=== PATIENT | male | born 1970 | race Two or more races ===

== ENCOUNTER 2024-12-26 17:42 | Emergency (ER) | payer OTHER ==
[~2024-12-26] VITALS: Ht 167.6 cm; Wt 100.0 kg
[2024-12-26 17:44] VITALS: BP 160/96; PULSE 78; RESP 16; TEMP 98.2; O2SAT 100
[2024-12-26] MEDS: FLUORESCEIN SOD OPTH TEST STRIP RIGHTEYE ONE (18:48)
[2024-12-26] MEDS: TETRACAINE HCL 0.5% OPTH(EYE) SOLN 4ML RIGHTEYE ONE (18:51)
--- NOTE | 2024-12-26 19:25 | ED.PDOC ---
Eye-HPI HPI Comments 54-YEAR-OLD MALE PRESENTS TO ER WITH COMPLAINTS OF LEFT EYE PAIN X FOUR DAYS. PATIENT REPORTS THAT HE HAS BEEN EXPERIENCING PAIN/SWELLING TO LEFT UPPER EYELID X4 DAYS, DENYING ANY TRAUMA/INJURY. HE RATES HIS CURRENT PAIN A 5/10 AND DENIES USE OF MEDICATIONS FOR CURRENT SYMPTOMS. PATIENT PRESENTS TO ER AMBULATORY ON ARRIVAL, ALERT ORIENTED X4, WITH STEADY GAIT, IN NO DISTRESS. NOTES HE'S ALSO BEEN EXPERIENCING INTERMITTENT FRONTAL HEADACHE X 4 DAYS, DENYING ANY CURRENT HEADACHE. DENIES VISION CHANGES, FURTHER SKIN CHANGES, FEVER OR ANY FURTHER SYMPTOMS/COMPLAINTS Chief Complaint: Eye Problem Time Seen by MD: 18:10 Primary Care Provider: UNKNOWN Reviewed Notes: Nurses Notes, Medications, Allergies Information Source: Patient Mode of Arrival: Ambulatory Past Medical History PAST MEDICAL HISTORY: Denies Surgical History: Denies all surgeries Family History Family History: Unknown Social History Smoker: Non-Smoker Alcohol: Denies ETOH Use Drugs: Denies Drug Use Lives In: Home Constitutional: denies: chills, diaphoresis, fatigue, fever, malaise, sweats, weakness, others EENTM: reports: others (As stated in HPI) Respiratory: denies: cough, hemoptysis, orthopnea, SOB at rest, shortness of breath, SOB with excertion, stridor, wheezing, others Cardiovascular: denies: chest pain, dizzy spells, diaphoresis, Dyspnea on exertion, edema, irregular heart beat, left arm pain, lightheadedness, palpitations, PND, syncope, others Gastrointestinal: denies: abdomen distended, abdominal pain, blood streaked bowels, constipated, diarrhea, dysphagia, difficulty swallowing, hematemesis, melena, nausea, poor appetite, poor fluid intake, rectal bleeding, rectal pain, vomiting, others Genitourinary: denies: burning, dysuria, flank pain, frequency, hematuria, incontinence, penile discharge, penile sore, pain, testicle pain, testicle swelling, urgency, others Neurological: denies: dizziness, fainting, headache, left sided numbness, left sided weakness, numbness, paresthesia, pre-existing deficit, right sided numbness, right sided weakness, seizure, speech problems, tingling, tremors, weakness, others Musculoskeletal: denies: back pain, gout, joint pain, joint swelling, muscle pain, muscle stiffness, neck pain, others Integumetry: denies: bruises, change in color, change in hair/nails, dryness, laceration, lesions, lumps, rash, wounds, others Allergic/Immunocompromised: denies: Difficulty Healing, Frequent Infections, Hives, Itching, others Hematologic/Lymphatic: denies: anemia, blood clots, easy bleeding, easy bruising, swollen glands, others Endocrine: denies: excessive hunger, excessive sweating, excessive thirst, excessive urination, flushing, intolerance to cold, intolerance to heat, unexplained weight gain, unexplained weight loss, others Psychiatric: denies: anxiety, bipolar disorder, depression, hopeless, panic disorder, schizophrenia, sleepless, suicidal, others Physical Exam General Appearance: No Apparent Distress HEENT: Normal ENT Inspection, PERRL/EOMI, Pharynx Normal, TMs Normal, Other (Mild swelling/TTP noted to left upper eyelid, no erythema/further skin changes noted, no subconjunctival injection/drainage from left eye noted) Neck: Full Range of Motion, Non-Tender, Normal Respiratory: Chest Non-Tender, Lungs Clear, No Accessory Muscle Use, No Respiratory Distress, Normal Breath Sounds Cardiovascular: No Murmur, No Gallop, Regular Rate/Rhythm Breast Exam: Deferred Gastrointestinal: NOT DONE Genitalia: Deferred Pelvic: Deferred Rectal: Deferred Extremities: Normal capillary refill, Normal range of motion 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 Was a procedure done?: No Sedation Sedation?: No EENT DIFF Eye: Allergic, Corneal Abrasion, Orbital Cellulits, Periorbital Cellulits, Other (MASS) X-Ray, Labs, Meds, VS Vital Signs Date Time Temp Pulse Resp B/P (MAP) Pulse Ox O2 Delivery O2 Flow Rate FiO2 12/26/24 17:44 98.2 78 16 160/96 100 98.2 PATIENT: JAIDA BARKLEYTRISHT: [id number]: [id number] : 1970 LOC: ER ROOM / BED: / AGE / SEX: 54 / M ADM STATUS: REG ER SERVICE 26 ORDERING PHYSICIAN: STACEY CORNEJO PROCEDURE(s): OB1CT - ORBITS WO CONTRAST REASON: LEFT EYE PAIN ORDER NUMBER(s): [id number], ACCESSION NUMBER(s): [id number] INDICATION: LEFT EYE PAIN EXAM DATE: 12/26/2024 07:35 PM COMPARISON: None TECHNIQUE: CT of the orbits without intravenous contrast. RADIATION DOSE: CTDIvol: 66.97 mGy, DLP: 1919.43 mGy*cm FINDINGS: Orbits and globes unremarkable. Mild mucoperiosteal thickening of the ethmoid air cells bilateral maxillary sinuses and right inferior frontal sinus. The remainder of the paranasal sinuses and mastoids are clear. The middle ears are clear. No evidence of acute traumatic fractures. 3 mm nodular skin outpouching over the left lateral forehead region. No significant soft tissue edema. No nasal masses are visualized. Mild left-sided nasal spurring. IMPRESSION: No evidence of acute traumatic fractures. The orbits and globes are unremarkable. ATED BY: KANDI FELICIANO DO DICTATED DATE/TIME: 12/26/242054 SIGNED BY: KANDI FELICIANO DO SIGNED DATE/TIME: 12/26/242054 CC: PATIENT: MURPHY BARKLEY ACCT: [id number] UNIT: [id number] : 1970 LOC: ER ROOM / BED: / AGE / SEX: 54 / M ADM STATUS: REG ER SERVICE 26 ORDERING PHYSICIAN: STACEY CORNEJO PROCEDURE(s): HWOCT - HEAD WITHOUT CONTRAST REASON: PAIN ORDER NUMBER(s): [id number], ACCESSION NUMBER(s): [id number] COMPUTERIZED TOMOGRAPHY OF THE HEAD WITHOUT CONTRAST REASON FOR STUDY: PAIN COMPARISON: CT ORBITS WO CONTRAST on DOS: 12/26/24 TECHNIQUE: Helical tomographic scans were obtained through the brain. 2-D coron al and sagittal reformatted images are provided. Radiation optimization: All CT scans at this facility use at least one of these dose optimization techniques: Automated exposure control mA and/or kV adjustment per patient size (includes targeted exams where dose is matched to clinical indication) or iterative reconstruction. RADIATION DOSE: CTDI: 66.97 mGy DLP: 1919.43 mGy-cm FINDINGS: No suspicious intracranial hyperdensity to suggest acute blood. There is no mass effect nor midline shift. There is no hydrocephalus. The suprasellar cistern is intact. The calvarium is intact. The visualized mastoid air cells and paranasal sinuses are clear. There is a small area of scalp swelling in the occipital region. IMPRESSION: No acute intracranial abnormality. ATED BY: SANTI GARCIA MD DICTATED DATE/TIME: 12/26/242017 SIGNED BY: SANTI GARCIA MD SIGNED DATE/TIME: 12/26/242017 CC: CT orbits and CT head without contrast reviewed Advised to follow up with PCP and ENT in 1-2 days Patient verbalized understanding and agreeable with current plan of care Advised to return to ER immediately if symptoms worsen Images Reviewed?: Images reviewed and evaluated by me Time of 1ST Reevaluation: 19:25 Reevaluation 1ST: N/A Patient Education/Counseling: Diagnosis, Treatment, Prognosis, Need For Follow Up Family Education/Counseling: No Family Present SEPSIS Sepsis Screen Date sepsis recognized/suspect: Dec 26, 2024 Time Sepsis recognized/suspect: 1744 Recent Procedure: No On Antibiotic Therapy: No Respiratory Rate >20: No Heart Rate >90: No Temp<36 C (96.8 F) or >38.3 C: No SBP <90 or MAP <65 mmHG: No New Acute Mental Status Change: No Is the patient on CPAP, BIPAP,: No Physician Orders Orbits Wo Contrast (12/26/24 19:27) Head Without Contrast (12/26/24 19:27) Vital Signs Date Time Temp Pulse Resp B/P (MAP) Pulse Ox O2 Delivery O2 Flow Rate FiO2 12/26/24 17:44 98.2 78 16 160/96 100 98.2 Departure 1 Departure Time of Disposition: 21:10 Impression: Primary Impression: Pain in periorbital region of left eye Disposition: 01 HOME / SELF CARE / HOMELESS Condition: Stable Discharged With: Self Critical Care Note Critical Care Time?: No Stability Stability form required: No Heart Score Heart Score: Heart Score Response (Comments) Value History N/A 0 EKG N/A 0 Age N/A 0 Risk Factors N/A 0 Troponin N/A 0 Total 0 STACEY CORNEJO Dec 26, 2024 19:25
--- NOTE | 2024-12-26 20:21 | DVH ---
COMPUTERIZED TOMOGRAPHY OF THE HEAD WITHOUT CONTRAST REASON FOR STUDY: PAIN COMPARISON: CT ORBITS WO CONTRAST on DOS: 12/26/24 TECHNIQUE: Helical tomographic scans were obtained through the brain. 2-D coronal and sagittal refor matted images are provided. Radiation optimization: All CT scans at this facility use at least one of these dose optimization techniques: Automated exposure control mA and/or kV adjustment per patient s ize (includes targeted exams where dose is matched to clinical indication) or iterative reconstructio n. RADIATION DOSE: CTDI: 66.97 mGy DLP: 1919.43 mGy-cm FINDINGS: No suspicious intracranial hyperdensity to suggest acute blood. There is no mass effect n or midline shift. There is no hydrocephalus. The suprasellar cistern is intact. The calvarium is inta ct. The visualized mastoid air cells and paranasal sinuses are clear. There is a small area of scalp swelling in the occipital region. IMPRESSION: No acute intracranial abnormality.
--- NOTE | 2024-12-26 20:57 | DVH ---
INDICATION: LEFT EYE PAIN EXAM DATE: 12/26/2024 07:35 PM COMPARISON: None TECHNIQUE: CT of the orbits without intravenous contrast. RADIATION DOSE: CTDIvol: 66.97 mGy, DLP: 1919.43 mGy*cm FINDINGS: Orbits and globes unremarkable. Mild mucoperiosteal thickening of the ethmoid air cells bilateral maxillary sinuses and right inferio r frontal sinus. The remainder of the paranasal sinuses and mastoids are clear. The middle ears are clear. No evidence of acute traumatic fractures. 3 mm nodular skin outpouching over the left lateral forehead region. No significant soft tissue edema . No nasal masses are visualized. Mild left-sided nasal spurring. IMPRESSION: No evidence of acute traumatic fractures. The orbits and globes are unremarkable.
== END 2024-12-26 21:49 | disposition home or self-care (01) ==
LOC: ER 17:42
DX: H57.12 Ocular pain, left eye (principal)
CPT/HCPCS: 70450; 70480